=== PATIENT | female | born 1950 | race Two or more races ===

== ENCOUNTER 2017-12-07 10:05 | Outpatient (CLI) | payer MEDICARE, OTHER ==
[~2017-12-07] VITALS: Ht 172.7 cm; Wt 59.9 kg
[2017-12-07 14:51] VITALS: BP 111/62
[2017-12-07] MEDS ORDERED: ASPIRIN EC81 MG ORAL (14:51)
[2017-12-07] MEDS ORDERED: METFORMIN HCL500 M1 ORAL (14:51)
[2017-12-07] MEDS ORDERED: PLAVIX75 MG ORAL (14:51)
[2017-12-07] MEDS ORDERED: CRESTOR10 M2 ORAL (14:51)
--- NOTE | 2017-12-08 16:08 | GI Initial Consult Note ---
History of Present Illness General Date patient seen: December 07, 2017 Time patient seen: 10:00 Referring physician: INGE Reason for Consultation: WEIGHT LOSS Present Illness HPI 67 year old female patient presents today with complaint of weight loss of 20 lbs over the course of 6 months. In addition, the patient has occasional constipation in which she takes Tamarind with relief. Her last colonoscopy was performed over 6 years ago, pt is unsure of the results. No signs of abuse or neglect. Patient is not fall risk. Denies any changes in dietary habits. Home Meds Reported Medications Rosuvastatin Calcium* (CRESTOR*) 10 Mg Tablet, ORAL DAILY, TAB 12/07/17 Clopidogrel Bisulfate* (PLAVIX*) 75 Mg Tablet, 75 MG ORAL DAILY, TAB 12/07/17 Aspirin Ec* (ASPIRIN EC*) 81 Mg Tablet.dr, 81 MG ORAL DAILY, TAB 12/07/17 Metformin Hcl* (METFORMIN HCL*) 500 Mg Tablet, ORAL TWICE A DAY, TAB 12/07/17 Med list reviewed/reconciled: Yes Allergies: Coded Allergies: CEPHALEXIN (Verified Allergy, Unknown, 12/07/17) Patient History PMH Narrative DM HLD Heart Disease Past Surgical History: Coronary angio gram with stent placement cholecystectomy Family History Narrative DM Heart disease Social History: Reports: other - occasional coffee; Denies: smoking, alcohol use, drug use Review of Systems All Other Systems: negative except mentioned in HPI Physical Exam Vital Signs Date Time Temp Pulse Resp B/P (MAP) Pulse Ox O2 Delivery O2 Flow Rate FiO2 12/07/17 14:51 98.9 81 111/62 96 98.9 Sp02 EP Interpretation: reviewed, normal General Appearance: well appearing, no apparent distress, alert Head: normocephalic EENT: PERRL/EOMI, normal ENT inspection Neck: supple Respiratory: normal breath sounds, no respiratory distress Cardiovascular: normal rate Gastrointestinal: normal inspection, non tender, soft, normal bowel sounds, non -distended Rectal: deferred Genitourinary: no CVA tenderness Musculoskeletal: normal inspection, back normal Neurologic: normal inspection, alert, oriented x3, responsive Psychiatric: normal inspection, judgement/insight normal, memory normal Skin: normal inspection, normal color, no rash, warm/dry, palpation normal, well hydrated Lymphatic: normal inspection, no adenopathy GI: Plan Problems: (1) Diabetes mellitus (2) HLD (hyperlipidemia) (3) Hx of coronary angiogram (4) Hx of cholecystectomy (5) Constipation (6) Weight loss Plan EGD/colonoscopy scheduled for 12/20/17. - CLD & (Nulytely/Suprep/Movi-Prep) prep instructions given and acknowledged by patient. - NPO @ PR day prior procedure explained. Rx Miralax Hold Plavix 3 days prior procedure date. Seen with Dr. Holder. Thank you for this patient referral. The patient was seen and examined at bedside and all new and available data was reviewed in the patients chart. I agree with the above findings, impression and plan. (Patient seen earlier today. Signature stamp does not reflect patient encounter time.). - MD Kayy PaulinoDiamond Children'S Medical CenterElliot EMERGENCY CREW SUPERVISOR December 08, 2017 16:08
== END 2017-12-07 10:38 | disposition home or self-care (01) ==
LOC: PAN 10:05
DX: K59.00 Constipation, unspecified (principal); E11.9 Type 2 diabetes mellitus without complications; E78.5 Hyperlipidemia, unspecified; Z90.49 Acquired absence of other specified parts of digestive tract; R63.4 Abnormal weight loss; Z79.82 Long term (current) use of aspirin; Z88.6 Allergy status to analgesic agent
CPT/HCPCS: 99201

== ENCOUNTER 2017-12-20 07:58 | Day surgery (SDC) | payer MEDICARE, OTHER ==
[~2017-12-20] VITALS: Ht 157.5 cm; Wt 59.9 kg
[2017-12-20] VITALS (8 sets, daily range): BP systolic 97–120; BP diastolic 62–75
[~2017-12-20 07:58] MED LIST: ASPIRIN EC81 MG ORAL; CRESTOR10 M2 ORAL; METFORMIN HCL500 M1 ORAL; PLAVIX75 MG ORAL
--- NOTE | 2017-12-20 08:27 | Pre-Procedure Note/Attestation ---
Pre-Procedure Note/Attestation Complete Prior to Procedure Planned Procedure: not applicable Procedure Narrative: esophagogastroduodenoscopy and colonoscopy Indications for Procedure Pre-Operative Diagnosis: wt loss Attestation I attest that I discussed the nature of the procedure; its benefits; risks and complications; and alternatives (and the risks and benefits of such alternatives ), prior to the procedure, with the patient (or the patient's legal medical collections representative). I attest that, if there was a reasonable possibility of needing a blood transfusion, the patient (or the patient's legal medical collections representative) was given the [facility] standardized written summary, pursuant to the [place] Blood Safety Act ([place] Health and Safety Code # 1645, as amended). I attest that I re-evaluated the patient just prior to the surgery and that there has been no change in the patient's H&P, except as documented below: Arpan Holder MD Dec 20, 2017 08:27
--- NOTE | 2017-12-20 08:27 | Short Stay Surgery H&P ---
History of Present Illness History of Present Illness Chief Complaint wt loss see recent consult note HPI Deysi Guadalupe is a 67 year old female who was admitted on for Abdominal Pain Patient History Allergies: Coded Allergies: CEPHALEXIN (Verified Allergy, Unknown, 12/07/17) Medication History Scheduled Aspirin Ec* (Aspirin Ec*), 81 MG ORAL DAILY, (Reported) Clopidogrel Bisulfate* (Plavix*), 75 MG ORAL DAILY, (Reported) Metformin Hcl* (Metformin Hcl*), Unknown Dose ORAL TWICE A DAY, (Reported) Rosuvastatin Calcium* (Crestor*), Unknown Dose ORAL DAILY, (Reported) Plan Attestation Are the patient's medical conditions optimized for surgery? Arpan Holder MD Dec 20, 2017 08:27
[2017-12-20] MEDS ORDERED: Lidocaine 1% MPF 10mg/ml 5ml ONE (10:00)
[2017-12-20] MEDS ORDERED: Propofol 200mg/20ml IV ONE (10:00)
[2017-12-20] MEDS ORDERED: Midazolam 2mg/2ml Inj ONE (10:00)
--- NOTE | 2017-12-20 10:40 | Endoscopy Procedure Note ---
Endoscopy Procedure Note General Indication for Procedure: wt loss Procedures Performed: EGD, colonoscopy Operative Findings/Diagnosis: gastritis, hemorrhoids Specimen: yes Pt Tolerated Procedure Well: Yes Estimated Blood Loss: none Anesthesia Anesthesiologist: dae Anesthesia: MAC Inserted Devices Implant(s) used?: No Quality Quality of Bowel Preparation: Good Did scope reach the cecum?: Yes Was there any complications?: No GI Core Measures 50 yrs or older w/o bx or poly: Yes 10yrs. F/U not recommended: Yes If not recommended, why?: Above average risk 10 yrs. F/U needed: Yes 18 years or older w/prev. colo: No Arpan Holder MD Dec 20, 2017 10:40
[2017-12-20] MEDS ORDERED: DiphenhydrAMINE 50mg/ml Inj IVP PRN (10:45)
[2017-12-20] MEDS ORDERED: Atropine Inj 1mg/10ml Syr IV PRN (10:45)
[2017-12-20] MEDS ORDERED: Midazolam 2mg/2ml Inj IVP PRN (10:45)
[2017-12-20] MEDS ORDERED: fentaNYL 100 mcg/2 mL IV PRN (10:45)
--- NOTE | 2017-12-20 11:21 | Anethesia Preoperative Eval ---
Anesthesia Pre-op PMH/ROS General Date of Evaluation: Dec 20, 2017 Time of Evaluation: 10:11 Anesthesiologist: dae ASA Score: ASA 3 Mallampati Score Class I : Soft palate, uvula, fauces, pillars visible Class II: Soft palate, uvula, fauces visible Class III: Soft palate, base of uvula visible Class IV: Only hard plate visible Mallampati Classification: Class II Surgeon: pieter Diagnosis: weight loss Surgical Procedure: egd/colonoscopy/bx Anesthesia History: none Social History: smoking - nonsmoker Family History: no anesthesia problems Allergies: Coded Allergies: CEPHALEXIN (Verified Allergy, Unknown, 12/07/17) Medications: see eMAR Past Medical History Cardiovascular: Reports: CAD, other - coronary stent Gastrointestinal/Genitourinary: Reports: GERD Endocrine: Reports: DM Hematology/Immune: Reports: other - anticoagulation therapy Anesthesia Pre-op Phys. Exam Physician Exam Last Vital Signs Date Time Temp Pulse Resp B/P (MAP) Pulse Ox O2 Delivery O2 Flow Rate FiO2 12/20/17 11:13 98.6 74 18 104/70 99 Room Air 98.6 12/20/17 11:00 2.0 Constitutional: NAD Neurologic: CN 2-12 intact Cardiovascular: RRR Respiratory: CTA Gastrointestinal: S/NT/ND Airway Exam Mallampati Score: Class II MO: full Neck: supple TMD: 2fb ROM: full Teeth: intact Anesthesia Pre-op A/P Risk Assessment & Plan Assessment: asa3 Plan: mac Status Change Before Surgery: No Pre-Antibiotics Drug: Jeni Jara MD Dec 20, 2017 11:21
--- NOTE | 2017-12-20 11:22 | Immediate Post-Op Evaluation ---
Immediate Post-Op Evalulation Immediate Post-Op Evalulation Procedure: egd/colonoscopy/bx Date of Evaluation: Dec 20, 2017 Time of Evaluation: 10:55 IV Fluids: 450ml 0.9ns Blood Products: none Estimated Blood Loss: negligible Blood Pressure Systolic: 198 Blood Pressure Diastolic: 70 Pulse Rate: 75 Respiratory Rate: 18 O2 Sat by Pulse Oximetry: 99 Temperature (Fahrenheit): 97.9 Pain Score (1-10): 0 Nausea: No Vomiting: No Complications none Patient Status: awake, reacts, patent Hydration Status: adequate Drug: Jeni Jara MD Dec 20, 2017 11:22
--- NOTE | 2017-12-20 11:24 | 48 Hour Post Anesthesia Eval ---
Post Anesthesia Evaluation Procedure: egd/colonoscopy/bx Date of Evaluation: Dec 20, 2017 Time of Evaluation: 10:57 Blood Pressure Systolic: 112 0: 77 Pulse Rate: 75 Respiratory Rate: 18 Temperature (Fahrenheit): 97.9 O2 Sat by Pulse Oximetry: 100 Airway: patent Nausea: No Vomiting: No Pain Intensity: 0 Hydration Status: adequate Cardiopulmonary Status: stable Mental Status/LOC: patient returned to baseline Post-Anesthesia Complications: none Follow-up care needed: N/A Jeni Finch MD Dec 20, 2017 11:24
--- NOTE | 2017-12-20 16:45 | Procedure Note ---
DATE OF PROCEDURE: 12/20/2017 SURGEON: Arpan Holder M.D. REFERRING PHYSICIAN: Arpan Carey M.D. ANESTHESIA: Per Dr. Finch. PROCEDURE: Upper endoscopy with biopsy and colonoscopy. INSTRUMENT: Olympus adult flexible upper endoscope and colonoscope. INDICATION: Weight loss and screening colonoscopic evaluation The procedure, risks, benefits, and possible consequences, including hemorrhage, aspiration, perforation and infection, and alternative treatments, were explained to the patient/legal guardian by Dr. Arpan Holder and the patient/legal guardian understood and accepted these risks. DESCRIPTION OF PROCEDURE: After informed consent was obtained and the patient was adequately sedated, Olympus upper endoscope was advanced from mouth into second portion of the duodenum and retroflexion was performed in the stomach. The patient has diffuse gastritis. Random biopsy from antrum was obtained to rule out H. pylori infection. At this time, the upper endoscope was retrieved and the patient was turned over for colonoscopy. First, a rectal exam was performed, which was positive for internal hemorrhoids. Then, the scope was advanced from the rectum into the cecum documented by the appendix orifice, ileocecal valve, and right upper quadrant palpation. Quality of prep was good. The patient had normal colonoscopic examination up to the cecum. No obvious mass, polyp, or any other pathology was seen. Retroflexion of rectum showed evidence of medium-sized internal hemorrhoids. SUMMARY OF FINDINGS: 1. Gastritis, status post biopsy. 2. Internal hemorrhoids. RECOMMENDATION: 1. Follow up biopsy results and treat accordingly. 2. We recommend repeat colonoscopy in 10 years. I want to thank Dr. Carey for this kind referral. Arpan Holder M.D. DR: MARITZA JOB#: [id number] CC: Arpan Carey M.D.; Fax#: [phone]
--- NOTE | 2017-12-21 13:57 | Cardiology Report ---
APPROVED REPORT EKG Measurement Heart [id number] NM 120P67 [id number] NSR Normal Electrocardiogram
== END 2017-12-20 12:05 | disposition home or self-care (01) ==
LOC: GAS 07:58
DX: Z12.11 Encounter for screening for malignant neoplasm of colon (principal); R63.4 Abnormal weight loss; K29.70 Gastritis, unspecified, without bleeding; Z88.1 Allergy status to other antibiotic agents; I25.10 Atherosclerotic heart disease of native coronary artery without angina pectoris; K21.9 Gastro-esophageal reflux disease without esophagitis; E11.9 Type 2 diabetes mellitus without complications; Z79.01 Long term (current) use of anticoagulants; Z95.5 Presence of coronary angioplasty implant and graft; K64.8 Other hemorrhoids
CPT/HCPCS: 43239; 82962; 93005; G0121; J2250; J2704; 94003; 94150

== ENCOUNTER 2018-01-27 14:30 | Outpatient (CLI) | payer MEDICARE, OTHER ==
--- NOTE | 2018-01-27 14:45 | GI Progress Note ---
Assessment/Plan Problems: (1) Hx of coronary angiogram ICD Codes: Z98.890 - Other specified postprocedural states SNOMED: 54548969, 645374974 (2) Weight loss ICD Codes: R63.4 - Abnormal weight loss SNOMED: 42203538, 630723840 (3) Diabetes mellitus ICD Codes: E11.9 - Type 2 diabetes mellitus without complications SNOMED: 56933372 (4) Constipation ICD Codes: K59.00 - Constipation, unspecified SNOMED: 43388689 Status: stable Status Narrative Seen with Dr. Holder. Assessment/Plan SUMMARY OF FINDINGS reviewed with patient: 1. Gastritis, status post biopsy. 2. Internal hemorrhoids. RECOMMENDATION: 1. Follow up biopsy results and treat accordingly. >> negative 2. We recommend repeat colonoscopy in 10 years. RTC PRN The patient was seen and examined at bedside and all new and available data was reviewed in the patients chart. I agree with the above findings, impression and plan. (Patient seen earlier today. Signature stamp does not reflect patient encounter time.). - Arpan Holder MD Subjective Gastrointestinal/Abdominal: Reports: no symptoms Subjective occasional constipation Objective T 97.6 BP 117/67 P 80 96 RA General Appearance: WD/WN, no apparent distress, alert Cardiovascular: normal rate Respiratory/Chest: normal breath sounds, no respiratory distress Abdominal Exam: normal bowel sounds, non tender, soft Extremities: normal range of motion, non-tender Kirby Sultana NP Jan 27, 2018 14:45
[2018-01-27 15:38] VITALS: BP 117/62
== END 2018-01-27 16:30 | disposition home or self-care (01) ==
LOC: PAN 14:30
DX: R63.4 Abnormal weight loss (principal); E11.9 Type 2 diabetes mellitus without complications; K59.00 Constipation, unspecified; Z98.890 Other specified postprocedural states; K29.70 Gastritis, unspecified, without bleeding; K64.8 Other hemorrhoids